=== PATIENT | female | born 1970 | race Caucasian/White ===

== ENCOUNTER 2016-11-01 09:12 | Emergency (ER) | payer MEDICAID ==
[~2016-11-01] VITALS: Ht 162.6 cm; Wt 86.0 kg
[2016-11-01 09:15] VITALS: BP 163/99
== END 2016-11-01 10:07 | disposition home or self-care (01) ==
LOC: ED 09:45
DX: B86 Scabies (principal)
CPT/HCPCS: 99283

== ENCOUNTER 2017-12-25 20:25 | Emergency (ER) | payer MEDICAID, OTHER ==
[2017-12-25 20:37] VITALS: BP 170/101
== END 2017-12-25 20:46 | disposition home or self-care (01) ==
LOC: ED 20:40
DX: B86 Scabies (principal); F17.210 Nicotine dependence, cigarettes, uncomplicated
CPT/HCPCS: 99283

== ENCOUNTER 2018-04-17 13:37 | Emergency (ER) | payer MEDICAID ==
[~2018-04-17] VITALS: Ht 162.6 cm; Wt 97.2 kg
[2018-04-17 13:49] VITALS: BP 191/100
== END 2018-04-17 14:41 | disposition home or self-care (01) ==
LOC: ED 14:35
DX: B86 Scabies (principal)
CPT/HCPCS: 99283